=== PATIENT | male | born 1990 | race Caucasian/White ===

== ENCOUNTER 2021-08-07 16:55 | Emergency (ER) | payer BC, OTHER ==
[2021-08-07 17:40] VITALS: BP 118/83; PULSE 81; TEMP 98.8; BMI 28.7
[2021-08-07 17:49] LABS: BASO % 0.6 % (0-2.0); EOS % 0.9 % (0-4.5); HEMATOCRIT 40.1 % (35.4-49); LYMPH % 39.2 % (8-40); MCH 24.3 pg (25.7-33.7); MCHC 32.5 g/dl (32.0-35.9); MEAN CELL VOLUME 74.8 fl (80-96); MEAN PLT VOLUME 7.3 fl (7.5-11.1); MONO % 4.3 % (3.8-10.2); PLATELET COUNT 273 10^3/uL (134-434); RBC 5.36 M/mm3 (4.00-5.60); RDW 14.4 % (11.9-15.9); WHITE BLOOD COUNT 8.2 K/mm3 (4.0-10.0)
[2021-08-07 18:09] LABS: CHLORIDE 106 mmol/L (98-107); SODIUM 140 mmol/L (136-145)
[2021-08-07 18:13] LABS: ALBUMIN 4.1 g/dl (3.4-5.0)
[2021-08-07 18:14] LABS: ANION GAP 5 MMOL/L (8-16); CO2 30 mmol/L (21-32); GLUCOSE,RANDOM 88 mg/dL (74-106)
[2021-08-07 18:17] LABS: CREATININE 0.9 mg/dL (0.55-1.3); SGOT/AST 13 U/L (15-37); SGPT/ALT 24 U/L (13-61)
[2021-08-07 18:18] LABS: LDH 176 U/L (87-246); TOT PROT 8.1 g/dl (6.4-8.2)
[2021-08-07 18:19] LABS: BILIRUBIN,TOTAL 0.3 mg/dL (0.2-1)
[2021-08-07 18:20] LABS: ALK PHOS 55 U/L (45-117)
[2021-08-07 19:03] LABS: ERYTHROCYTE SEDIMENTATION RATE 7 mm/hr (0-10)
== END 2021-08-07 18:20 | disposition home or self-care (01) ==
LOC: JER 16:55
DX: M25.512 Pain in left shoulder (principal)
CPT/HCPCS: 36415; 71046-TC-FY; 80053; 82728; 83615; 84484; 85025; 85379; 85651; 86140; 87804; 87807; 93005; 93010; 99285-25; C9803; U0003; U0005

== ENCOUNTER → 2024-01-10 | Day surgery (SDC) | payer BC, OTHER | END | disposition home or self-care (01) | LOC: JASU-SURG 13:32 → JRADUS-SUR 13:32 | PROVIDERS: ATTEND Radiology Diagnostic Radiology | PROC: 0G9G3ZX Drainage of Left Thyroid Gland Lobe, Percutaneous Approach, Diagnostic (ICD-10-PCS; principal; 2024-01-10) | DX: E04.1 Nontoxic single thyroid nodule (principal) | CPT/HCPCS: 10005; 76942; 88173; 88305-TC ==

== ENCOUNTER 2024-05-14 11:04 | Emergency (ER) | payer OTHER ==
[2024-05-14 11:12] VITALS: BP 138/83; PULSE 77; RESP 18; TEMP 98.1; BMI 29.2
[2024-05-14] MEDS ORDERED: METOCLOPRAMIDE HCL INJECTION 10 MG/2 ML VIAL ONE (11:27)
[2024-05-14] MEDS: METOCLOPRAMIDE HCL INJECTION 10 MG/2 ML VIAL IVPUSH ONE (11:45)
[2024-05-14] MEDS: LACTATED RINGERS SOLUTION 1,000 ML/1,000 ML INFUS.BAG IV STA (11:45)
[2024-05-14 12:11] LABS: ALBUMIN 4.7 g/dl (3.4-5.0); ALK PHOS 44 U/L (45-117); ANION GAP 7 mmol/L (4-13); BILIRUBIN,TOTAL 0.6 mg/dl (0.2-1); CALCIUM 9.6 mg/dl (8.5-10.1); CHLORIDE 102 mmol/L (98-107); CO2 29 mmol/L (21-32); GLUCOSE,RANDOM 107 mg/dl (74-106); POTASSIUM 4.2 mmol/L (3.5-5.1); SGOT/AST 18 U/L (15-37); SGPT/ALT 15 U/L (7-52); SODIUM 138 mmol/L (136-145); TOT PROT 7.4 g/dl (6.4-8.2)
[2024-05-14 12:34] LABS: HEMATOCRIT 44.1 % (35.4-49); MCH 24.8 pg (25.7-33.7); MCHC 31.7 g/dl (32.0-35.9); MEAN PLT VOLUME 8.2 fl (7.5-11.1); PLATELET COUNT 213.8 10^3/uL (134-434); RBC 5.65 10^6/uL (4.00-5.60); WHITE BLOOD COUNT 5.3 10^3/uL (4.0-10.8)
[2024-05-14 13:30] LABS: ADD RBC MORPHOLOGY YES
[2024-05-14 13:49] LABS: ANISOCYTOSIS OCCASIONAL
[2024-05-14 13:50] LABS: OVALOCYTE OCCASIONAL
[2024-05-14 13:51] LABS: PLATELET ESTIMATE ADEQUATE
[2024-05-14] MEDS ORDERED: MECLIZINE HCL 25 MG TABLET (FP) ONE (14:33)
[2024-05-14] MEDS: MECLIZINE HCL 25 MG TABLET (FP) PO ONE (14:37)
== END 2024-05-14 14:57 | disposition home or self-care (01) ==
LOC: FER 11:04
PROC: 3E033GC Introduction of Other Therapeutic Substance into Peripheral Vein, Percutaneous Approach (ICD-10-PCS; principal; 2024-05-14)
PROC: 3E0337Z Introduction of Electrolytic and Water Balance Substance into Peripheral Vein, Percutaneous Approach (ICD-10-PCS; 2024-05-14)
DX: R51.9 Headache, unspecified (principal); R42 Dizziness and giddiness; R11.0 Nausea; R10.13 Epigastric pain; Z20.822 Contact with and (suspected) exposure to COVID-19
CPT/HCPCS: 0241U-QW; 36415; 70551-TC; 80053; 81003; 84439; 84443; 85025; 87086; 93005; 99285-25

== ENCOUNTER 2024-05-25 05:06 | Day surgery (SDC) | payer OTHER ==
[2024-05-23 13:27] VITALS: BMI 25.8
[2024-05-25 09:54] VITALS: RESP 16
[2024-05-25 10:32] VITALS: TEMP 97.5
[2024-05-25 10:36] VITALS: BP 121/81; PULSE 69
== END 2024-05-25 10:20 | disposition home or self-care (01) ==
LOC: JASU-ENDO 05:06
PROVIDERS: ATTEND Student in an Organized Health Care Education/Training Program
PROC: 0DB78ZX Excision of Stomach, Pylorus, Via Natural or Artificial Opening Endoscopic, Diagnostic (ICD-10-PCS; 2024-05-25)
PROC: 0DB68ZX Excision of Stomach, Via Natural or Artificial Opening Endoscopic, Diagnostic (ICD-10-PCS; 2024-05-25)
PROC: 0DB28ZX Excision of Middle Esophagus, Via Natural or Artificial Opening Endoscopic, Diagnostic (ICD-10-PCS; 2024-05-25)
PROC: 0DB98ZX Excision of Duodenum, Via Natural or Artificial Opening Endoscopic, Diagnostic (ICD-10-PCS; principal; 2024-05-25 09:00)
DX: K29.50 Unspecified chronic gastritis without bleeding (principal); B96.81 Helicobacter pylori [H. pylori] as the cause of diseases classified elsewhere
CPT/HCPCS: 88305-TC; 88342-TC